=== PATIENT | male | born 1940 | race Caucasian/White ===

== ENCOUNTER 2020-08-10 06:52 | Day surgery (SDC) | payer MEDICARE, OTHER, SELFPAY ==
[2020-08-08 15:46] VITALS: BMI 29.5
--- NOTE | 2020-08-08 16:40 | RAD_ITS ---
STUDY: X-RAY CHEST REASON FOR EXAM: Male, 80 years old. cad TECHNIQUE: PA and lateral views of the chest. COMPARISON: None. FINDINGS: The lungs are clear and expanded. There is no demonstrated pleural abnormality. Normal size heart. Normal mediastinum and annie. Normal visualized pulmonary arteries. Normal visualized aortic arch and descending thoracic aorta. There is a dextroscoliosis of the thoracic spine. Normal visualized ribs, clavicles, and shoulders. There is no demonstrated abnormality of the visualized soft tissue structures of the upper abdomen. RAD/Chest PA and Lateral IMPRESSION: Normal x-ray examination of the chest. Electronically Signed: Mansoor Marshall MD at 16:57 EST Tel , Service support ,
[2020-08-08 17:27] LABS: Absolute Lymphocyte Count 1.54 X10^3/uL (0.83-4.51); Absolute Neutrophil Count 7.8 X10^3/uL (2.0-7.7); Basophil# 0.04 X10^3/uL; Basophil% 0.4 % (0-1); Eosinophil# 0.05 X10^3/uL; Eosinophils% 0.5 % (0-5); Hematocrit 48.3 % (40-54); Hemoglobin 15.3 g/dL (13.0-16.5); Lymphocyte # 1.54 X10^3/ul (4.0); Lymphocyte % 14.8 % (19-41); Mean Corp Hgb Conc 31.7 g/dL (32-36); Mean Corpuscular Hgb 30.5 pg (27.0-32.0); Mean Corpuscular Volume 96.2 fL (80-94); Mean Platelet Vol. 9.5 fl (6.2-12.0); Monocyte# 1.02 X10^3/uL; Monocyte% 9.8 % (0-10); NRBC Flagged by Analyzer 0 % (0-5); Neutrophil # 7.75 X10^3/uL (2.7-7.7); Neutrophil % 74.1 % (47-70); Platelet Count 254 K/mm3 (150-450); RBC Distribution Width CV 13.2 % (11.6-14.6); RBC Distribution Width SD 47.4 fl (35.1-43.9); Red Blood Count 5.02 M/mm3 (4.6-6.2); White Blood Count 10.4 K/mm3 (4.4-11.0)
[2020-08-09 08:37] VITALS: BMI 29.5
--- NOTE | 2020-08-10 06:00 | HP_ITS ---
HPI HPI History of Present Illness Details: 80-year-old man with no previous cardiac history who presents to the office for initial evaluation. He complains of chest discomfort which is that started about a month to 2 months ago. He describes this as chest pain on exertion as a burning sometimes radiates to both arms is usually with activity and goes away with rest. More frequently he has been having it with minimal activity. He has not had any rest discomfort he has had no dizziness or diaphoresis no near syncope or syncope he has not taken any medication for this. He has been on aspirin for which she has been compliant he had an EKG done which demonstrated sinus rhythm with no acute changes premature ventricular complexes were noted. He does get short of breath with exertion. Intake Vital Signs 08/08/20 Height 5 ft 10 in 08/08/20 Weight: 206 lb 08/08/20 BMI 29.5 08/08/20 BP 168/95 H 08/08/20 Respiration 16 08/08/20 Pulse 78 08/08/20 Pulse Oximetry (%) 98 Intake Visit Reasons: self ref'd for CP Allergies No Known Allergies Allergy (Unverified 08/08/20 15:46) Medications aspirin 81 mg tablet,delayed release 81 mg PO DAILY 08/08/20 [History Confirmed 08/08/20] atorvastatin 40 mg tablet 40 mg PO DAILY #30 tab 08/08/20 [Rx Confirmed 08/08/20] clopidogrel 75 mg tablet 75 mg PO DAILY #30 tab 08/08/20 [Rx Confirmed 08/08/20] metoprolol succinate 50 mg tablet,extended release 24 hr 50 mg PO DAILY #90 tab 08/08/20 [Rx Confirmed 08/08/20] nitroglycerin 0.4 mg sublingual tablet 0.4 mg SUBLINGUAL Q5M PRN #30 tab 08/08/20 [Rx Confirmed 08/08/20] omeprazole magnesium 20 mg tablet,delayed release 20 mg PO DAILY PRN 08/08/20 [History Confirmed 08/08/20] [facility] Medical History GERD (gastroesophageal reflux disease) (Chronic) Surgical History History of cataract surgery (Resolved 07/2020) History of tonsillectomy (Resolved) History of vasectomy (Resolved) Family History Father Heart disease Myocardial infarction, Onset Age: 65 from [place] first [place] age 56 Social History (Updated 08/08/20 @ 16:[address] Errol Butler MD) Smoking Status: Former smoker pack-years: 10 alcohol intake: current Alcohol type: beer caffeine: Yes Type: coffee Number of servings: 6 ROS Const Const: Negative for fatigue, weakness, headache(s), frequent falls, difficulty sleeping or excessive sweating Eyes Eyes: Negative for loss of peripheral vision, transient loss of vision, blurry vision, double vision or tunnel vision ENT ENT: Negative for headache(s), dizziness, Nosebleed/epistaxis or balance problems Cardio Chest Pain: Yes (new onset chest burning with activity, becomes SOB and weakness in his legs) Frequency: daily, weekly Character: other (burning) Location: left chest Duration: minutes Exacerbation: activity Relieving: rest Recurrence: activity Palpitations: No Edema: None Muscle aches with walking: None Resp Respiratory: Negative for SOB with activity, SOB at rest, SOB orthopnea\SOB lying down, Cough or paroxysmal nocturnal dyspnea GI GI: Negative nausea, vomiting, heartburn or black,tarry stools : Negative for hematuria Musc Musc: Negative for muscle aches/ myalgia, muscle weakness, joint pain or balance problems Skin Skin: Negative non-healing lesions, rash or unusual bruising Neuro Neuro: Negative for dizziness, lightheadedness, near syncope, syncope, orthostatic symptoms, frequent falls, headache(s), weakness, blurry vision, double vision or lack of coordination Dayo Hematologic/Lymphatic: Negative for easy bleeding or easy bruising Endo Endo: Negative for fatigue, excessive sweating or increased thirst/drinking Psych Psych: Negative for anxiety or depression Allergy Allergy/Immunology: Negative for hives, Negative for rash Cardiology Exam Const Appearance: cooperative, healthy appearing, no acute distress, well developed and well groomed Nutritional Appearance: average body habitus and well nourished Orientation: alert, awake and oriented x3 Head Head: normal to inspection, normocephalic and atraumatic Ears: hearing grossly normal bilaterally and external ears normal Nose: external nose normal, nares normal, nasal mucous membranes and turbinates normal, septum normal, no nasal discharge Face and Sinus: face symmetric Mouth: oral mucosae normal, tongue normal, oropharynx normal and moist mucous membranes Teeth and gingiva: dentition normal Throat: posterior oropharynx normal, tonsils normal and uvula midline Eyes General: appearance normal, both eyes and all related structures Eyelids: eyelids normal Conjunctivae: conjunctivae normal Pupils: PERRL, normal by confrontation and accommodation normal EOM: EOM intact bilaterally Neck Neck: normal visual inspection, trachea midline and no JVD JVD: +5 Carotids: normal carotid upstroke and bounding pulses Chest Chest inspection: normal inspection of the chest, symmetric chest movement and normal respiratory effort Auscultation: Bilateral: Clear to Auscultation Cardio Palpation: normal PMI Rate: regular rate Rhythm: regular rhythm Heart sounds: S1 normal, S2 normal and normal, physiologic split S2; negative rub, gallop or murmur GI GI: normal to inspection, soft, no hepatosplenomegaly and bowel sounds present Neuro General: alert, awake, oriented x3, gait normal, moves all extremities and no focal sensory deficit Skin Skin: no rashes or lesions noted Extremities Pulses: Normal: Right Femoral Pulse, Left Femoral Pulse, Right Dorsalis Pedis Pulse, Left Dorsalis Pedis Pulse, Right Posterior Tibial Pulse, Left Posterior Tibial Pulse, Right Radial Pulse, Left Radial Pulse Lower Extremity Edema: None: Bilateral Musculoskel Musculoskeletal: No joint tenderness Psych Psychological: normal affect Assessment & Plan 1. Chest pain on exertion R07.9 Plan He does have evidence of chest pain with exertion suggestive of unstable angina. My recommendation at this time would be for him to continue the aspirin, start a beta-peterson with Toprol-XL 50 mg a day, start clopidogrel 75 mg a day, and a high intensity statin. He will be scheduled for cardiac catheterization in the next 48 hours. The risk benefits alternatives of been explained to him he understands and agrees to proceed. Orders Orders: 12 Lead EKG performed by [facility] Today Left Heart Cath/COR/LV Percut Today Basic Metabolic Profile (BMP) Today Chest PA and Lateral Today 2. Elevated blood pressure reading in office without diagnosis of hypertension R03.0 Plan He does have a history unbeknownst to him of hypertension. I would suggest that we aggressively treat the above with Toprol. He may need to have an NATO inhibitor added as appropriate. This will be evaluated after his cardiac catheterization. Thank you for allowing me to participate in the care of your patient. Please don't hesitate to call if any issues arise. Orders Orders: CBC W/Diff, Automated Today Plan Detail Other Orders Orders: Basic Metabolic Profile (BMP) Today E78.5 Thyroid Stim Hormone (TSH) Today R06.00 Other Medications New: metoprolol succinate ER (Toprol XL) 50 mg PO DAILY 90 tabs 3RF atorvastatin (Lipitor) 40 mg PO DAILY 30 tabs 3RF clopidogrel (Plavix) 75 mg PO DAILY 30 tabs 3RF nitroglycerin do not exceed 3 doses per episode 0.4 mg sublingual Q5M PRN 30 tabs 0RF chest pain Follow Up 6 Weeks (r) Coding Level of Care Code Off vis,new,level 5 Diagnoses Chest pain on exertion R07.9 Elevated blood pressure reading in office without diagnosis of hypertension R03.0 Coding Level of Care Code Off vis,new,level 5 Diagnoses Chest pain on exertion R07.9 Elevated blood pressure reading in office without diagnosis of hypertension R03.0
[2020-08-10 07:42] LABS: Anion Gap 2 (5-15); BUN 18 mg/dL (7-18); BUN/Creat Ratio 16.8 RATIO (10-20); Chloride 107 mmol/L (98-107); Creatinine, Serum 1.07 mg/dL (0.70-1.30); EST Glomerular Filtration Rate 71 mL/min (>60); Est Glom Filt Rate - Afr Amer 86 mL/min (>60); Glucose 103 mg/dL (74-106); Potassium 4.2 mmol/L (3.5-5.1); Sodium Level 141 mmol/L (136-145); Thyroid Stim Hormone (TSH) 8.39 uIU/mL (0.358-3.74)
--- NOTE | 2020-08-10 08:33 | CL.D_ITS ---
Patient Name: SHAMEKA LIMA Study Date: 08/10/2020 Performing: Errol Butler MD Ht: 70.07 inches 178 cm : 1940 Wt: 205.03 lbs 93 kg Age: 80 Gender: male BSA: 2.11 PROCEDURE(S) PERFORMED [id number]/COR/LV CLINICAL PROFILE AND INDICATIONS Indications: Worsening Angina Heart Failure: None Stress/Imaging Stress/Image Study Performed: No CAD Presentations: Unstable angina. CONCLUSIONS High-grade distal left main coronary stenosis with mild LAD disease; mild left circumflex disease; mo derate right coronary artery disease and preserved ejection fraction. RECOMMENDATIONS Surgery consult for coronary revascularization DESCRIPTION OF PROCEDURE The patient arrived to the procedure lab. The risks and benefits of the procedure as well as a full d escription of our services here and current unavailability of surgical backup were fully explained to the patient and/or their significant other prior to the catheterization. The Timeout was completed, verifying the correct patient and procedure. The patient's procedural site was prepped and draped in the usual fashion. Local anesthetic was given subcutaneously to right radial region with Lidocaine 2% . Using a modified Seldinger technique, arterial access was obtained via the right radial artery, a 6 Fr sheath was inserted. Left Coronary Artery selective angiography was performed in multiple views u sing a 5 Fr. 4.0 [place] catheter. Right Coronary Artery selective angiography was then performed in mu ltiple views using a 5 Fr. 4.0 [place] catheter. Left Ventriculography was performed in MERCEDES projection using a 5 Fr. Pigtail catheter. LV to AO pullback pressures were then recorded.The arterial sheath was pulled and a TR Band was applied for hemostasis CORONARY ANGIOGRAPHY DOMINANCE: Right Dominant LEFT HEART ASSESSMENT Left Ventricular Ejection Fraction: by LV Gram 55 % Normal LV wall motion Normal Left Ventricular systolic function LEFT MAIN: 95 distal % Stenosis LEFT ANTERIOR DESCENDING ARTERY: Mild luminal irregularities less than 30% CIRCUMFLEX ARTERY: Mild luminal irregularities RIGHT CORONARY ARTERY: OSTIAL RCA: 40 % Stenosis PROX RCA: Mild luminal irregularities less than 30% COMPLICATIONS No Complications PROCEDURE MEDICATIONS Versed 1 mg IV Fentanyl 50 mcg IV Versed 1 mg IV Oxygen: 2 L/min via nasal cannula Heparin given IA 08/10/2020 08:07:16 Verapamil 2.5mg, Ntg 100mcgs, 2000 units of Heparin given IA 08/10/2020 08:07:16 SUMMARY OF HEMODYNAMIC DATA Time AIR REST ECG 07:19:27 AO 111/58 (78) SA 08:08:15 LV 114/7, 15 08:16:15 LV 117/9, 17 08:16:21 LV 107/8, 20 08:17:45 LV 105/7, 15 08:17:52 LVp 110/8, 15 08:17:58 AOp 123/65 (91) 08:18:03 Signed By Errol Butler MD On 08/10/2020 08:32:12 Errol Butler MD
== END 2020-08-10 11:00 | disposition short-term general hospital (02) ==
LOC: CLSP 06:53
PROVIDERS: Referring Provider Internal Medicine Cardiovascular Disease; Visit Provider Internal Medicine Cardiovascular Disease
DX: I25.110 Atherosclerotic heart disease of native coronary artery with unstable angina pectoris (principal); K21.9 Gastro-esophageal reflux disease without esophagitis; R03.0 Elevated blood-pressure reading, without diagnosis of hypertension; Z79.899 Other long term (current) drug therapy; Z79.02 Long term (current) use of antithrombotics/antiplatelets; Z79.82 Long term (current) use of aspirin; Z87.891 Personal history of nicotine dependence; Z82.49 Family history of ischemic heart disease and other diseases of the circulatory system
CPT/HCPCS: 36415; 71046; 80048; 84443; 85025; 87426; 93458; 99152; 99153; J7040; Q9967; C1769; C1894

== ENCOUNTER → 2020-09-22 07:10 | Outpatient (CLI) | payer MEDICARE, OTHER, SELFPAY ==
[2020-09-19 09:31] VITALS: BMI 28.4
[2020-09-22 08:28] LABS: AST(SGOT) 29 U/L (15-37); Alanine Aminotransfer ALT/SGPT 45 U/L (16-61); Albumin, Serum 3.5 g/dL (3.2-5.0); Alkaline Phosphatase 168 U/L (45-117); Bilirubin, Direct 0.17 mg/dL (0.00-0.30); Cholesterol 136 mg/dL (200); Globulin 4.1 g/dL (2.2-4.2); High Density Lipoprotein 44 mg/dL; Protein, Total 7.6 g/dL (6.4-8.2); Triglycerides 80 mg/dL; Very Low Density Lipoprotein 16 mg/dL (5-40)
== END ==
PROVIDERS: Referring Provider Nurse Practitioner Family; Visit Provider Nurse Practitioner Family
DX: I25.10 Atherosclerotic heart disease of native coronary artery without angina pectoris (principal); I49.3 Ventricular premature depolarization; E78.5 Hyperlipidemia, unspecified; E03.9 Hypothyroidism, unspecified; Z95.1 Presence of aortocoronary bypass graft
CPT/HCPCS: 36415; 80061; 80076; 84439; 84443

== ENCOUNTER → 2020-11-06 08:57 | Outpatient (CLI) | payer MEDICARE, OTHER, SELFPAY ==
[2020-09-19 09:31] VITALS: BMI 28.4
[2020-11-06 10:16] LABS: T4 Free Direct 1.09 ng/dL (0.76-1.46)
== END ==
PROVIDERS: Referring Provider Nurse Practitioner Family; Visit Provider Nurse Practitioner Family
DX: I25.10 Atherosclerotic heart disease of native coronary artery without angina pectoris (principal); I97.89 Other postprocedural complications and disorders of the circulatory system, not elsewhere classified; I48.91 Unspecified atrial fibrillation; E03.9 Hypothyroidism, unspecified; Z95.1 Presence of aortocoronary bypass graft
CPT/HCPCS: 36415; 84439; 84443

== ENCOUNTER → 2020-12-25 08:27 | Outpatient (CLI) | payer MEDICARE, OTHER, SELFPAY ==
[2020-12-20 08:29] VITALS: BMI 28.3
[2020-12-25 09:49] LABS: T4 Free Direct 1.13 ng/dL (0.76-1.46); Thyroid Stim Hormone (TSH) 2.34 uIU/mL (0.358-3.74)
== END ==
PROVIDERS: Referring Provider Nurse Practitioner Family; Visit Provider Nurse Practitioner Family
DX: E03.9 Hypothyroidism, unspecified (principal)
CPT/HCPCS: 36415; 84439; 84443

== ENCOUNTER → 2021-02-05 08:58 | Outpatient (CLI) | payer MEDICARE, OTHER, SELFPAY ==
[2020-12-20 08:29] VITALS: BMI 28.3
[2021-02-05 10:01] LABS: T4 Free Direct 1.28 ng/dL (0.76-1.46); Thyroid Stim Hormone (TSH) 1.61 uIU/mL (0.358-3.74)
== END ==
PROVIDERS: Referring Provider Nurse Practitioner Family; Visit Provider Nurse Practitioner Family
DX: I97.89 Other postprocedural complications and disorders of the circulatory system, not elsewhere classified (principal); I48.91 Unspecified atrial fibrillation; I49.3 Ventricular premature depolarization; E03.9 Hypothyroidism, unspecified; Z95.1 Presence of aortocoronary bypass graft
CPT/HCPCS: 36415; 84439; 84443

== ENCOUNTER → 2021-05-08 07:25 | Outpatient (CLI) | payer MEDICARE, OTHER, SELFPAY ==
[2021-05-08 09:02] LABS: AST(SGOT) 27 U/L (15-37); Alanine Aminotransfer ALT/SGPT 36 U/L (16-61); Alkaline Phosphatase 69 U/L (45-117); Bilirubin, Direct 0.25 mg/dL (0.00-0.30); Cholesterol 167 mg/dL (200); Globulin 3.7 g/dL (2.2-4.2); High Density Lipoprotein 77 mg/dL; Protein, Total 7.7 g/dL (6.4-8.2); Thyroid Stim Hormone (TSH) 2.36 uIU/mL (0.358-3.74); Triglycerides 71 mg/dL; Very Low Density Lipoprotein 14 mg/dL (5-40)
== END ==
PROVIDERS: PCP Internal Medicine; Referring Provider Nurse Practitioner Family; Visit Provider Nurse Practitioner Family
DX: I25.10 Atherosclerotic heart disease of native coronary artery without angina pectoris (principal); E78.5 Hyperlipidemia, unspecified; E05.90 Thyrotoxicosis, unspecified without thyrotoxic crisis or storm; Z95.1 Presence of aortocoronary bypass graft
CPT/HCPCS: 36415; 80061; 80076; 84443

== ENCOUNTER 2021-11-05 07:48 | Outpatient (CLI) | payer MEDICARE, OTHER, SELFPAY ==
[2021-11-05 08:29] LABS: Absolute Lymphocyte Count 1.44 X10^3/uL (0.83-4.51); Absolute Neutrophil Count 3.9 X10^3/uL (2.0-7.7); Basophil# 0.03 X10^3/uL; Basophil% 0.5 % (0-1); Eosinophil# 0.11 X10^3/uL; Eosinophils% 1.7 % (0-5); Hematocrit 44.1 % (40-54); Hemoglobin 15.1 g/dL (13.0-16.5); Lymphocyte # 1.44 X10^3/ul (0.83-4.51); Lymphocyte % 22.7 % (19-41); Mean Corp Hgb Conc 34.2 g/dL (32-36); Mean Corpuscular Hgb 31.8 pg (27.0-32.0); Mean Corpuscular Volume 92.8 fL (80-94); Mean Platelet Vol. 9.5 fl (6.2-12.0); Monocyte# 0.82 X10^3/uL; NRBC Flagged by Analyzer 0 % (0-5); Neutrophil # 3.91 X10^3/uL (2.7-7.7); Neutrophil % 61.8 % (47-70); Platelet Count 209 K/mm3 (150-450); RBC Distribution Width CV 13.7 % (11.6-14.6); RBC Distribution Width SD 46.6 fl (35.1-43.9); Red Blood Count 4.75 M/mm3 (4.6-6.2); White Blood Count 6.3 K/mm3 (4.4-11.0)
[2021-11-05 08:53] LABS: AST(SGOT) 32 U/L (15-37); Alanine Aminotransfer ALT/SGPT 39 U/L (16-61); Albumin, Serum 3.6 g/dL (3.2-5.0); Alkaline Phosphatase 61 U/L (45-117); Bilirubin, Direct 0.19 mg/dL (0.00-0.30); Cholesterol 150 mg/dL (200); Globulin 3.5 g/dL (2.2-4.2); High Density Lipoprotein 62 mg/dL; Protein, Total 7.1 g/dL (6.4-8.2); Triglycerides 63 mg/dL; Very Low Density Lipoprotein 13 mg/dL (5-40)
[2021-11-05 08:55] LABS: Anion Gap 4 (5-15); BUN 15 mg/dL (7-18); BUN/Creat Ratio 15.7 RATIO (10-20); Calcium,Total 8.8 mg/dL (8.5-10.1); Chloride 105 mmol/L (98-107); Creatinine, Serum 0.96 mg/dL (0.70-1.30); EST Glomerular Filtration Rate 80 mL/min (>60); Est Glom Filt Rate - Afr Amer 97 mL/min (>60); Glucose 92 mg/dL (74-106); Sodium Level 139 mmol/L (136-145); Thyroid Stim Hormone (TSH) 2.07 uIU/mL (0.358-3.74)
== END 2021-11-05 23:59 | disposition home or self-care (01) ==
PROVIDERS: Nurse Practitioner Family; PCP Internal Medicine; Referring Provider Internal Medicine; Visit Provider Internal Medicine
DX: E03.9 Hypothyroidism, unspecified (principal); E78.5 Hyperlipidemia, unspecified; E05.90 Thyrotoxicosis, unspecified without thyrotoxic crisis or storm
CPT/HCPCS: 36415; 80048; 80061; 80076; 84443; 85025

== ENCOUNTER → 2022-04-28 | Outpatient (CLI) | payer MEDICARE, OTHER, SELFPAY ==
[2022-04-28 13:09] LABS: AST(SGOT) 25 U/L (15-37); Alanine Aminotransfer ALT/SGPT 30 U/L (16-61); Albumin, Serum 3.8 g/dL (3.2-5.0); Alkaline Phosphatase 60 U/L (45-117); Bilirubin, Direct 0.25 mg/dL (0.00-0.30); Cholesterol 170 mg/dL (200); Globulin 3.4 g/dL (2.2-4.2); High Density Lipoprotein 62 mg/dL; Protein, Total 7.2 g/dL (6.4-8.2); Triglycerides 72 mg/dL; Very Low Density Lipoprotein 14 mg/dL (5-40)
[2022-04-28 13:44] LABS: Vitamin B12 367 pg/mL (211-911)
== END | disposition home or self-care (01) ==
LOC: BIMLAB 10:34
PROVIDERS: Nurse Practitioner Family; PCP Internal Medicine; Referring Provider Internal Medicine; Visit Provider Internal Medicine
DX: E78.5 Hyperlipidemia, unspecified (principal); G62.9 Polyneuropathy, unspecified
CPT/HCPCS: 36415; 80061; 80076; 82607

== ENCOUNTER → 2022-06-23 | Outpatient (CLI) | payer MEDICARE, OTHER, SELFPAY ==
--- NOTE | 2022-06-23 15:07 | NEURO ---
NCS and/or EMG Patient Report Ordering Doctor: Echo Barnettlevi DATE OF SERVICE: 06/23/22 Indication: Bilateral lower extremity numbness and tightness. Evaluate for peripheral neuropathy. Findings: Nerve conduction studies were performed in the right and left lower extremities. The right peroneal motor study recording the extensor digitorum brevis showed a normal amplitude, normal distal latency and normal conduction velocity. No conduction block or focal slowing was present across the fibular neck. The right tibial motor study recording the abductor hallucis brevis showed a normal amplitude, normal distal latency and normal conduction velocity. The right sural sensory response showed a normal amplitude and conduction velocity. The right superficial peroneal sensory response showed a normal amplitude and conduction velocity. The left peroneal motor study recording the extensor digitorum brevis showed a normal amplitude, normal distal latency and normal conduction velocity. No conduction block or focal slowing was present across the fibular neck. The left tibial motor study recording the abductor hallucis brevis showed a normal amplitude, normal distal latency and normal conduction velocity. The left sural sensory response showed a normal amplitude and conduction velocity. The left superficial peroneal sensory response showed a normal amplitude and conduction velocity. Needle EMG was omitted given the normal nerve conduction studies and lack of associated radicular pain. Impression: This is a normal study. There is no electrophysiologic evidence of peripheral neuropathy in either lower extremity. Please note: routine nerve conduction studies and needle EMG assess the larger, myelinated motor and sensory fibers. Thus, routine electrodiagnostic studies may be insensitive in detecting a peripheral neuropathy restricted to small fibers alone (i.e., pain, temperature and autonomic fibers). However, most peripheral neuropathies with predominantly small fiber large dysfunction will also involve large fibers to a lesser extent, and will demonstrate abnormalities on electrodiagnostic studies. Thus, clinical correlation is required in the interpretation of this negative electrodiagnostic study if an isolated small fiber neuropathy is considered. Michoacano Baldwin D.O. Multi Select Codes Neurology Neurology Interp Codes: 36307-94 [facility] test 7-8 studies (interp)
== END | disposition home or self-care (01) ==
LOC: PSN 13:48
PROVIDERS: PCP Internal Medicine; Referring Provider Internal Medicine; Visit Provider Internal Medicine
DX: R26.89 Other abnormalities of gait and mobility (principal); G62.9 Polyneuropathy, unspecified
CPT/HCPCS: 95910

== ENCOUNTER → 2022-10-29 | Outpatient (CLI) | payer MEDICARE, OTHER, SELFPAY ==
[2022-10-29 12:44] LABS: Absolute Lymphocyte Count 1.55 X10^3/uL (0.83-4.51); Absolute Neutrophil Count 5.2 X10^3/uL (2.0-7.7); Basophil# 0.03 X10^3/uL; Basophil% 0.4 % (0-1); Eosinophil# 0.15 X10^3/uL; Eosinophils% 1.9 % (0-5); Hematocrit 49.4 % (40-54); Lymphocyte # 1.55 X10^3/ul (0.83-4.51); Lymphocyte % 19.6 % (19-41); Mean Corp Hgb Conc 32.4 g/dL (32-36); Mean Corpuscular Hgb 31.5 pg (27.0-32.0); Mean Corpuscular Volume 97.2 fL (80-94); Mean Platelet Vol. 9.9 fl (6.2-12.0); Monocyte# 0.99 X10^3/uL; Monocyte% 12.5 % (0-10); NRBC Flagged by Analyzer 0 % (0-5); Neutrophil # 5.16 X10^3/uL (2.7-7.7); Neutrophil % 65.3 % (47-70); Platelet Count 220 K/mm3 (150-450); RBC Distribution Width CV 13.9 % (11.6-14.6); RBC Distribution Width SD 50.3 fl (35.1-43.9); Red Blood Count 5.08 M/mm3 (4.6-6.2); White Blood Count 7.9 K/mm3 (4.4-11.0)
[2022-10-29 13:46] LABS: AST(SGOT) 31 U/L (15-37); Alanine Aminotransfer ALT/SGPT 38 U/L (16-61); Albumin, Serum 3.8 g/dL (3.2-5.0); Alkaline Phosphatase 63 U/L (45-117); Anion Gap 7 (5-15); BUN 16 mg/dL (7-18); BUN/Creat Ratio 16.7 RATIO (10-20); Bilirubin, Direct 0.22 mg/dL (0.00-0.30); Calcium,Total 9.3 mg/dL (8.5-10.1); Chloride 105 mmol/L (98-107); Cholesterol 167 mg/dL (200); Creatinine, Serum 0.96 mg/dL (0.70-1.30); EST Glomerular Filtration Rate 80 mL/min (>60); Est Glom Filt Rate - Afr Amer 97 mL/min (>60); Globulin 3.9 g/dL (2.2-4.2); Glucose 90 mg/dL (74-106); High Density Lipoprotein 70 mg/dL; PSA,Total - Annual Screen 0.94 ng/mL (0.00-4.00); Potassium 5.3 mmol/L (3.5-5.1); Protein, Total 7.7 g/dL (6.4-8.2); Sodium Level 139 mmol/L (136-145); Thyroid Stim Hormone (TSH) 4.08 uIU/mL (0.358-3.74); Triglycerides 64 mg/dL; Very Low Density Lipoprotein 13 mg/dL (5-40)
== END | disposition home or self-care (01) ==
LOC: BIMLAB 11:02
PROVIDERS: PCP Internal Medicine; Referring Provider Internal Medicine; Visit Provider Internal Medicine
DX: E78.5 Hyperlipidemia, unspecified (principal); E03.9 Hypothyroidism, unspecified; E78.00 Pure hypercholesterolemia, unspecified; N40.0 Benign prostatic hyperplasia without lower urinary tract symptoms; Z12.5 Encounter for screening for malignant neoplasm of prostate
CPT/HCPCS: 80053; 80061; 82248; 84153; 84443; 85025; G0103

== ENCOUNTER → 2022-12-10 | Outpatient (CLI) | payer MEDICARE, OTHER, SELFPAY | END | disposition home or self-care (01) | LOC: BIMLAB 09:40 | PROVIDERS: PCP Internal Medicine; Visit Provider Internal Medicine | DX: E03.9 Hypothyroidism, unspecified (principal) | CPT/HCPCS: 36415; 84443 ==

== ENCOUNTER → 2023-02-09 | Outpatient (CLI) | payer MEDICARE, OTHER, SELFPAY ==
[2023-02-09 12:46] LABS: Thyroid Stim Hormone (TSH) 3.28 uIU/mL (0.358-3.74)
== END | disposition home or self-care (01) ==
LOC: BIMLAB 08:23
PROVIDERS: PCP Internal Medicine; Visit Provider Internal Medicine
DX: E03.9 Hypothyroidism, unspecified (principal)
CPT/HCPCS: 36415; 84443

== ENCOUNTER → 2024-01-04 | Outpatient (CLI) | payer MEDICARE, OTHER, SELFPAY ==
[2024-01-04 12:09] LABS: Absolute Lymphocyte Count 1.32 X10^3/uL (0.83-4.51); Absolute Neutrophil Count 4.5 X10^3/uL (2.0-7.7); Basophil# 0.03 X10^3/uL; Basophil% 0.4 % (0-1); Eosinophil# 0.11 X10^3/uL; Eosinophils% 1.6 % (0-5); Hemoglobin 14.8 g/dL (13.0-16.5); Lymphocyte # 1.32 X10^3/ul (0.83-4.51); Lymphocyte % 19.4 % (19-41); Mean Corp Hgb Conc 33.6 g/dL (32-36); Mean Corpuscular Hgb 32.1 pg (27.0-32.0); Mean Corpuscular Volume 95.4 fL (80-94); Mean Platelet Vol. 9.6 fl (6.2-12.0); Monocyte# 0.88 X10^3/uL; Monocyte% 12.9 % (0-10); NRBC Flagged by Analyzer 0 % (0-5); Neutrophil # 4.47 X10^3/uL (2.7-7.7); Neutrophil % 65.6 % (47-70); Platelet Count 212 K/mm3 (150-450); RBC Distribution Width SD 49.3 fl (35.1-43.9); Red Blood Count 4.61 M/mm3 (4.6-6.2); White Blood Count 6.8 K/mm3 (4.4-11.0)
[2024-01-04 13:36] LABS: AST(SGOT) 29 U/L (15-37); Alanine Aminotransfer ALT/SGPT 26 U/L (16-61); Albumin, Serum 3.5 g/dL (3.2-5.0); Alkaline Phosphatase 60 U/L (45-117); Anion Gap 6 (5-15); BUN 16 mg/dL (7-18); BUN/Creat Ratio 18.7 RATIO (10-20); Calcium,Total 8.5 mg/dL (8.5-10.1); Chloride 106 mmol/L (98-107); Cholesterol 146 mg/dL (200); Creatinine, Serum 0.85 mg/dL (0.70-1.30); EST Glomerular Filtration Rate 91 mL/min (>60); Est Glom Filt Rate - Afr Amer 110 mL/min (>60); Globulin 3.5 g/dL (2.2-4.2); Glucose 99 mg/dL (74-106); High Density Lipoprotein 64 mg/dL; PSA,Total - Annual Screen 0.87 ng/mL (0.00-4.00); Potassium 4.3 mmol/L (3.5-5.1); Sodium Level 137 mmol/L (136-145); Thyroid Stim Hormone (TSH) 2.82 uIU/mL (0.358-3.74); Triglycerides 93 mg/dL; Very Low Density Lipoprotein 19 mg/dL (5-40)
== END | disposition home or self-care (01) ==
LOC: BIMLAB 11:21
PROVIDERS: PCP Internal Medicine; Referring Provider Internal Medicine; Visit Provider Internal Medicine
DX: I25.10 Atherosclerotic heart disease of native coronary artery without angina pectoris (principal); E03.9 Hypothyroidism, unspecified; Z12.5 Encounter for screening for malignant neoplasm of prostate
CPT/HCPCS: 36415; 80053; 80061; 84153; 84443; 85025; G0103

== ENCOUNTER → 2024-06-30 | Outpatient (CLI) | payer MEDICARE, OTHER, SELFPAY ==
[2024-06-30 10:34] LABS: Absolute Lymphocyte Count 1.43 X10^3/uL (0.83-4.51); Absolute Neutrophil Count 4.9 X10^3/uL (2.0-7.7); Basophil# 0.03 X10^3/uL; Basophil% 0.4 % (0-1); Hematocrit 44.7 % (40-54); Hemoglobin 14.7 g/dL (13.0-16.5); Lymphocyte # 1.43 X10^3/ul (0.83-4.51); Lymphocyte % 18.9 % (19-41); Mean Corp Hgb Conc 32.9 g/dL (32-36); Mean Corpuscular Hgb 31.6 pg (27.0-32.0); Mean Corpuscular Volume 96.1 fL (80-94); Mean Platelet Vol. 9.1 fl (6.2-12.0); Monocyte# 0.88 X10^3/uL; Monocyte% 11.7 % (0-10); NRBC Flagged by Analyzer 0 % (0-5); Neutrophil # 4.88 X10^3/uL (2.7-7.7); Neutrophil % 64.6 % (47-70); Platelet Count 239 K/mm3 (150-450); RBC Distribution Width CV 13.6 % (11.6-14.6); RBC Distribution Width SD 48.7 fl (35.1-43.9); Red Blood Count 4.65 M/mm3 (4.6-6.2); White Blood Count 7.6 K/mm3 (4.4-11.0)
[2024-06-30 11:12] LABS: Anion Gap 3 (5-15); BUN 17 mg/dL (7-18); BUN/Creat Ratio 20.1 RATIO (10-20); Calcium,Total 8.8 mg/dL (8.5-10.1); Chloride 107 mmol/L (98-107); Creatinine, Serum 0.84 mg/dL (0.70-1.30); EST Glomerular Filtration Rate 92 mL/min (>60); Est Glom Filt Rate - Afr Amer 112 mL/min (>60); Glucose 91 mg/dL (74-106); Potassium 4.5 mmol/L (3.5-5.1); Sodium Level 138 mmol/L (136-145)
== END | disposition home or self-care (01) ==
LOC: LAB 10:05
PROVIDERS: PCP Internal Medicine; Referring Provider Nurse Practitioner Gerontology; Visit Provider Nurse Practitioner Gerontology
DX: R53.83 Other fatigue (principal)
CPT/HCPCS: 36415; 80048; 84443; 85025

== ENCOUNTER → 2024-07-08 | Outpatient (CLI) | payer MEDICARE, OTHER, SELFPAY ==
--- NOTE | 2024-07-08 15:47 | STRESSREP_ITS ---
Stress Test Report Exercise myocardial perfusion stress test. 84-year-old man with a history of coronary artery disease Stress protocol: Resting EKG demonstrates normal sinus rhythm with a rate of 62 bpm resting blood pressure is 118/72 mmHg. The patient exercised according to the regular Julio protocol for a total duration of 3 minutes and 30 seconds attaining a maximum heart rate of 139 bpm which was 101% of maximum predicted heart rate; the maximum workload was 5.7 metabolic equivalents. At rest there were no ST or T wave changes noted to suggest ischemia and at peak exercise upsloping ST changes only were noted which did not meet the criteria for ischemia. No clinical angina was noted the test was terminated due to the target heart rate being a chieved/fatigue. The peak blood pressure was 198/84 mmHg. Rate-pressure product was 21,700. Myocardial perfusion protocol. 9.5 mCi of technetium 99m sestamibi was injected at rest. The patient exercised according to regular Julio protocol for total duration of 3-1/2 minutes and at peak exercise 32.2 mCi of technetium 99m sestamibi was injected stress images were obtained stress and rest images were reconstructed in comparing the short axis vertical long and horizontal long axis. Gated images were also obtained. Perfusion SPECT analysis: Review of the stress images demonstrate normal uptake of tracer noted in all areas of the myocardium. The resting images similarly demonstrate normal uptake of tracer noted in all areas of the myocardium. No areas of reversibility are noted to suggest ischemia no previous infarct was noted. Gated SPECT analysis: The gated ejection fraction is 65%. Conclusion: Normal exercise myocardial perfusion stress test at a low workload Preserved ejection fraction. The low workload may affect sensitivity for detection of ischemia
== END | disposition home or self-care (01) ==
LOC: CVS 06:06
PROVIDERS: PCP Internal Medicine; Referring Provider Nurse Practitioner Gerontology; Visit Provider Nurse Practitioner Gerontology
DX: Z95.1 Presence of aortocoronary bypass graft (principal)
CPT/HCPCS: 78452; 93017; A9500; A4216

== ENCOUNTER → 2025-01-02 | Outpatient (CLI) | payer MEDICARE, OTHER, SELFPAY ==
[2025-01-02 13:56] LABS: Absolute Lymphocyte Count 1.45 X10^3/uL (0.83-4.51); Basophil# 0.04 X10^3/uL; Basophil% 0.5 % (0-1); Eosinophil# 0.14 X10^3/uL; Eosinophils% 1.9 % (0-5); Hematocrit 44.1 % (40-54); Hemoglobin 14.9 g/dL (13.0-16.5); Lymphocyte # 1.45 X10^3/ul (0.83-4.51); Lymphocyte % 19.5 % (19-41); Mean Corp Hgb Conc 33.8 g/dL (32-36); Mean Corpuscular Hgb 32.3 pg (27.0-32.0); Mean Corpuscular Volume 95.5 fL (80-94); Mean Platelet Vol. 9.8 fl (6.2-12.0); Monocyte# 0.84 X10^3/uL; Monocyte% 11.3 % (0-10); NRBC Flagged by Analyzer 0 % (0-5); Neutrophil # 4.97 X10^3/uL (2.7-7.7); Neutrophil % 66.7 % (47-70); Platelet Count 221 K/mm3 (150-450); RBC Distribution Width CV 13.9 % (11.6-14.6); RBC Distribution Width SD 48.8 fl (35.1-43.9); Red Blood Count 4.62 M/mm3 (4.6-6.2); White Blood Count 7.5 K/mm3 (4.4-11.0)
[2025-01-02 15:16] LABS: ALB/GLOB Ratio 1.3 RATIO (0.9-2.4); AST(SGOT) 31 U/L (<=37); Alanine Aminotransfer ALT/SGPT 22 U/L (<=46); Albumin, Serum 3.8 g/dL (3.4-4.8); Alkaline Phosphatase 66 U/L (40-129); Anion Gap 10 (5-15); BUN 16 mg/dL (4-19); Calcium,Total 9.1 mg/dL (7.6-11.0); Carbon Dioxide 24.6 mmol/L (21.0-32.0); Chloride 104 mmol/L (98-108); Cholesterol 149 mg/dL (<=200); Creatinine, Serum 0.98 mg/dL (0.70-1.20); EST Glomerular Filtration Rate 77 (>60); Globulin 2.9 g/dL (2.2-4.2); Glucose 102 mg/dL (70-99); High Density Lipoprotein 59 mg/dL; Low Density Lipoprotein Calc. 73 mg/dL; PSA,Total- Diagnostic 0.78 ng/mL (0.00-4.00); Potassium 4.7 mmol/L (3.3-5.1); Protein, Total 6.7 g/dL (5.9-8.4); Sodium Level 138 mmol/L (133-145); Total Bilirubin 0.48 mg/dL (0.00-1.30); Triglycerides 86 mg/dL; Very Low Density Lipoprotein 17 mg/dL (5-40); Vitamin B12 901 pg/mL (180-914); cholesterol:hdl ratio screen 2.54
== END | disposition home or self-care (01) ==
LOC: BIMLAB 12:04
PROVIDERS: PCP Internal Medicine; Visit Provider Internal Medicine
DX: E03.9 Hypothyroidism, unspecified (principal); F41.9 Anxiety disorder, unspecified; F32.A Depression, unspecified; N40.0 Benign prostatic hyperplasia without lower urinary tract symptoms
CPT/HCPCS: 80053; 80061; 82306; 82607; 84153; 84443; 85025

== ENCOUNTER → 2025-07-10 | Outpatient (CLI) | payer MEDICARE, OTHER, SELFPAY ==
[2025-07-10 11:18] LABS: Vitamin D,25 Hydroxy 75.3 ng/mL (30-100)
[2025-07-10 11:26] LABS: AST(SGOT) 31 U/L (<=37); Alanine Aminotransfer ALT/SGPT 23 U/L (<=46); Albumin, Serum 4.1 g/dL (3.4-4.8); Alkaline Phosphatase 57 U/L (40-129); Anion Gap 9 (5-15); BUN 18 mg/dL (4-19); BUN/Creat Ratio 19.8 RATIO (10-20); Calcium,Total 9.0 mg/dL (7.6-11.0); Carbon Dioxide 25.3 mmol/L (21.0-32.0); Chloride 102 mmol/L (98-108); Globulin 2.8 g/dL (2.2-4.2); Glucose 96 mg/dL (70-99); Potassium 4.8 mmol/L (3.3-5.1)
== END | disposition home or self-care (01) ==
LOC: LAB 10:18
PROVIDERS: PCP Internal Medicine; Referring Provider Internal Medicine; Visit Provider Internal Medicine
DX: E03.9 Hypothyroidism, unspecified (principal); E55.9 Vitamin D deficiency, unspecified; I10 Essential (primary) hypertension
CPT/HCPCS: 36415; 80053; 82306; 84443